=== PATIENT | female | born 1995 | race American Indian/Alaskan Native ===

== ENCOUNTER 2017-03-23 19:04 | Emergency (ER) | payer OTHER ==
[2017-03-23] MEDS ORDERED: TYLENOL ONE (19:55)
[2017-03-23] MEDS ORDERED: TYLENOL PO ONE (19:57)
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
[2017-03-23 23:22] VITALS: BP 116/79
== END 2017-03-23 21:38 | disposition home or self-care (01) ==
LOC: ED 19:04
DX: S93.602A Unspecified sprain of left foot, initial encounter (principal); V49.49XA Driver injured in collision with other motor vehicles in traffic accident, initial encounter; X58.XXXA Exposure to other specified factors, initial encounter; Y93.9 Activity, unspecified; Y92.9 Unspecified place or not applicable; Y99.9 Unspecified external cause status